=== PATIENT | female | born 1960 | race Caucasian/White ===

== ENCOUNTER 2023-03-13 09:15 | Inpatient (IN) | payer MEDICARE, SELFPAY ==
--- NOTE | 2023-03-13 09:33 | PC.NURSE ---
Plavix and Nitro drip given to labor economics professor, medications not given in ER.
--- NOTE | 2023-03-13 09:34 | XACV_ITS ---
Exam Room: [facility] Ht: 163 cm Wt: 77 kg BSA: 1.89 m2 Gender: Female : 1960 Any Known Allergies: Other Exam Priority: Routine Procedure(s): Procedure Description: Diagnostic procedure Procedure Description: PCI procedure Procedure Description: Drug Eluting Coronary Stent Procedure Description: PTCA Kandis MENA; Diagnostic Cath Status: Emergency Diagnostic Findings * Patient was brought in as a STEMI alert. We did not stop her in the emergency room and brought her directly to the Computer Programmer Analyst. She was hemodynamically stable upon arrival.. * Her arteries are heavily calcified throughout. Angiography reveals right coronary artery dominance. The left main is heavily calcified and contains a 70 to 80% ostial lesion. The LAD is calcified and tortuous. There is a 99% stenosis in the midportion followed by 100% occlusion. The vessel is heavily calcified throughout. The circumflex contains a 70% ostial stenosis. The remainder of the vessel contains diffuse luminal irregularities. It along with the septal branches of the LAD provide collateral flow to the right coronary artery. The right coronary artery is occluded at its at the ostium most likely. Because of the patient's deteriorating clinical status I did not place a catheter in the ostium of the right coronary artery.. * Because of her severe underlying three-vessel and left main coronary disease I placed an intra-aortic balloon pump. I then made arrangements to have her transferred to [facility] in [place]. The only family member she has here is a granddaughter. I spoke to her at length.. PCI Status: Emergency PCI Indication: Immediate PCI for STEMI Interventional Findings * I was able to place a wire down the LAD. I was able to open the vessel with a balloon however it would continually close off. I opened it 2 or 3 times and it would immediately close. I made an attempt to place a stent that because of the anatomy proximal to the area of closure I was not able to get a stent around the corner of a very tortuous vessel. It was at that point that I placed a balloon pump and arranged for transfer. Conclusions 1. Acute anterior wall myocardial infarction with closure of the LAD. Successful opening of the LAD with continued closure. Unable to place a stent. Severe three-vessel coronary artery disease and left main coronary artery disease. Placement of an intra-aortic balloon pump in transfer for coronary bypass surgery. Recommendations * CABG. Interventional RX Recommendation: CABG Diagnostic RX Recommendation: CABG Anticoagulation: Heparin Pressures Phase:Rest AO : 106 / 78 ( 91 ) @ 10:58:00 AM 134 / 93 ( 112 ) @ 11:10:00 AM Clinical Evaluation EBL: 5mL-10mL Procedural Details Procedure Consent Obtained. Pre-Procedure Time Out. Identified patient by full name and date of as verbalized by the patient/guarantor. Does the consent match the physician's order: N/A Emergent; Informed Consent not obtained due to time critical life threat. Accurate & Complete Informed Consent: N/A Emergent; Informed Consent not obtained due to time critical life threat. Inpatient/Outpatient History & Physical on Chart: N/A Emergent; Informed Consent not obtained due to time critical life threat. If H&P is completed, is and addenduem needed: N/A Emergent; Informed Consent not obtained due to time critical life threat; If yes, is the addendum complete: N/A Emergent; Informed Consent not obtained due to time critical life threat. Visualize and Verify Site with Patient/Guarantor: N/A. Relevant Radiology Images available: N/A Emergent; Informed Consent not obtained due to time critical life threat. The risks, benefits, and alternatives of sedation and/or procedure were discussed by physician. The patient agrees to continue. Procedure started. [facility] Clinical Fraility Score: 3: Managing Well. Computer Programmer Analyst Indications: ACS <= 24 hours. Chest Pain Symptom Assessment: Typical Angina Symptoms. Cardiovascular Instability: Yes, if yes, Persistant Ischemic Symptoms. Correct patient, site and procedure confirmed by cath team. Current diagnosis: STEMI. PERRLA. Strong, equal hand chip separator bilaterally. Lungs clear x 5 lobes. IV Site on Arrival: 18 gauge in the right wrist. IV Site on Arrival: 22 gauge in the left hand. IV Fluids: 0.9% NaCl at KVO. 0 mL infused prior to sawyer cork slabs. Oxygen started at 3liters/min via nasal canula. right groin was prepped with chloroprep then draped in the usual sterile fashion. right radial was prepped with chloroprep then draped in the usual sterile fashion. Physician notified. Baseline sample Acquired. HR: 92 BPM. Patient's family unavailable. Equipment: 6F - Radial. Cardiac Cath Pack. ACIST Manifold Kit Model BT 2000. Heparinized Saline (2 units/mL), 1000 mL bag. Physician arrived. Physician scrubbed in. Immediate Pre-Procedure Time Out. Correct Patient: Yes; Correct Procedure: Yes; Correct Site: Yes; Correct Patient Position: Yes; Correct Supplies: Yes; Dried Flammable Prep: Yes; Blood Products Available: N/A;. Lidocaine 1% infiltrated to the right radial. AP pads were placed on the patient. Arterial access obtained. 6 austrian XB 3 guide catheter was inserted over the standard J wire. Baseline sample Acquired. HR: 94 BPM. Cineography of the LCA performed. Current Diagnosis : STEMI. Childs guidewire was advanced through the guide catheter to lesion in the mid LAD. Inflation number : 1 A AB TREK 3.00X12 RX BALLOON was prepped and advanced across the Mid LAD , then inflated to 8 KEVIN for 0:23 seconds. Inflation number: 2 The AB TREK 3.00X12 RX BALLOON was reinflated across the Mid LAD, to 8 KEVIN for 0:25 seconds. Balloon out. Results checked. PCI Indication : Immediate PCI for STEMI. 2.75x12 [place] inserted OTW but unable to cross. Intact stent out OTW. Lidocaine 1% infiltrated to the right groin. Arterial access obtained. ABG drawn and sent with respiratory therapy. A 16Fr brady catheter was inserted without resistance maintaining sterile technique. Bag to gravity with clear urine returning. Labs drawn and sent to lab. IABP wire inserted. 34cc IAB inserted in the Right Femoral Artery. Oxymask placed on patient at 8L. Anesthesia called to intubate the patient. Anesthesia arrived. IABP turned on. Lab arrived to bean picker blood. Augmentation: 1:1. Augmenter BP: 171/95. ACT drawn. Results 181 seconds. Therapeutic limits - pre-heparin administration 90-150 seconds and monitoring heparin during a vascular procedure >250 seconds. ABG Results back and read to Dr. Marquis. Dr. Marquis scrubbed out. Sheath(s) sutured into position with 2-0 silk and sterile 4x4's and Op-site applied over the site. No oozing or signs and symptoms of hematoma noted. Arterial sheath flushed and connected to tranducer and pressure bag with heparinized saline. The IV in the right hand was removed. A 18 gauge IV was started in the right forearm using aseptic technique. Medication's Wasted: Other = Fentanyl 25 mcg Versed 1 mg. Estimated blood loss: 5mL-10mL. Nausea/Vomiting: No. Procedure completed. Patient transferred by bed to ICU. Vital chart was stopped. Access Site Site: Right Radial artery Sheath Size: 6 Fr Hemostasis Success: Unsuccessful Site: Right Femoral artery Sheath Size: 7 Fr Hemostasis Success: Unsuccessful Procedure Medications Start: 9:49 AM Stop: 9:49 AM Medication: Plavix Amount: 600 mg Route: P.O. Start: 9:49 AM Stop: 9:49 AM Medication: Versed Amount: 1 mg Route: I.V. Start: 9:49 AM Stop: 9:49 AM Medication: Fentanyl Amount: 50 mcg Route: I.V. Start: 9:57 AM Stop: 9:57 AM Medication: Versed Amount: 1 mg Route: I.V. Start: 10:09 AM Stop: 10:09 AM Medication: Lasix (furosemide) Amount: 40 mg Route: I.V. Start: 10:09 AM Stop: 10:09 AM Medication: Versed Amount: 1 mg Route: I.V. Start: 10:38 AM Stop: 10:38 AM Medication: Versed Amount: 2 mg Route: I.V. Start: 10:38 AM Stop: 10:38 AM Medication: Fentanyl Amount: 50 mcg Route: I.V. Start: 10:43 AM Stop: :43 AM Medication: Versed 1 mg and Fentanyl 25 mcg Amount: 1 Route: I.V. I, the attending physician, have reviewed and verified all procedure medications. Yes, all medications given per verbal order History/Risk Factors Hypertension: No Dyslipidemia: No Peripheral Arterial Disease (PAD): No Myocardial Infarction (ND): No Obesity: Yes Renal Disease: No Tobacco Use: Current/Recent(w/in 1 year) Prior Interventions PCI: No CABG: No Valve Surgery: No Report Signatures Finalized by Dr. Cezar Marquis MD on 03/13/2023 12:04 PM
--- NOTE | 2023-03-13 09:45 | W.ED.CHESTPA ---
HPI - Chest Pain General: Stated Complaint: STEMI Time Seen by Provider: 03/13/23 09:16 History of Present Illness: 62-year-old female was brought in via EMS on a STEMI alert. EMS had sent us a EKG electronically prior to arrival and then an updated 130 minutes before arrival. The first EKG sent was over an hour out at the 30-minute gigi she did appear to have ST elevation they are reporting continuous chest pain despite nitro we gave orders for heparin today had already been given Plavix. That applied topical nitro. A STEMI alert was called. The EKGs that have been forwarded were given to Dr. Marquis. He recommended diverting past the ER directly to the Internal Audit Consultant based on the report and appearance of the EKG. The patient was registered in the ER and initial labs and appropriate medications, Plavix and nitro were ordered. I did not see or personally evaluate the patient as she was directed straight to the Internal Audit Consultant on arrival per Dr. Marquis's request. MDM - Chest Pain Medical Decision Making STEMI alert directed to Internal Audit Consultant on arrival per Dr. Marquis Discharge Plan Discharge Clinical Impression: ST elevation myocardial infarction (STEMI) Condition: Stable Coding Level of Care Code ED Multi Spindle Operator for Phillip Phipps
[2023-03-13 10:28] LABS: ABG PCO2 42.3 mmHg (35-45); ABG PH Result 7.45 (7.35-7.45); Alveolar-Arterial Oxygen Gradi 3.9 mmHg (5-10); Arterial Blood Gas Hematocrit 44.9 % (37-47); Blood Gas Operator Identificat AMH; Blood Gas Sample Site Not specified; Blood Gas Sample Type Arterial; Carboxyhemoglobin 4.3 %THgb (0.4-20.1); HCO3 ABG 29.6 mmol/L (22-26); HGB O2 Sat 89.1 % (95-100); Ionized Calcium Level - ABG 1.1 mmol/L (1.1-1.4); Methemoglobin 0.7 % (0.4-1.5); Oxygen Device OXY MASK; Oxygen Saturation ABG 93.9; PO2 ABG 66.2 mmHg (80.0-100.0); Total Hemoglobin 14.6 g/dL (12-16)
[2023-03-13 10:39] LABS: Basophils % 0.4 %; Eosinophils # 0.1 10^3/uL (0.0-0.8); Eosinophils % 0.9 %; Hemoglobin 14.1 g/dL (11.5-15.3); Lymphocytes % 10.9 %; Mean Corpuscular HGB Conc 33.6 g/dL (30.0-36.0); Mean Corpuscular Hemoglobin 30.7 pg (28.0-34.0); Mean Corpuscular Volume 91.3 fl (81-99); Mean Platelet Volume 9.1 fL (7.4-10.4); Monocytes # 0.7 10^3/uL (0.2-0.9); Monocytes % 7.3 %; Neutrophils # 7.11 10^3/uL (1.8-7.7); Neutrophils % 79.9 %; Nucleated Red Blood Cells % 0 %; Platelet Count 289 10^3/cmm (130-400); Red Cell Distribution Width 12.5 % (12.1-15.1); White Blood Count 8.9 10^3/uL (4.0-10.0)
--- NOTE | 2023-03-13 10:51 | PM.HP ---
Providers/Chief Complaint Admitting Physician: Cezar Marquis MD Chief Complaint: STEMI History of Present Illness Brooke Flores is a 62 year old female who has not been to this facility before. We do not know anything about her past medical history other than that she is a heavy smoker. She was brought in by ambulance under a STEMI alert. Her EKG revealed ST segment elevation in the anterior precordial leads. We bypassed the emergency room and brought her directly to the cardiac catheterization laboratory. At the time of her arrival she was awake and alert with good oxygen saturation and hemodynamically stable. She was diaphoretic and complaining of severe substernal chest pain. I got very little chance to speak with her. She started having discomfort last evening. It came and went last night and then this morning came on and she could not get it to go away so she called 911. In the ambulance she was given 325 mg of aspirin, 600 mg of Plavix and 4000 units of heparin. Review of Systems Narrative: Review of systems is unavailable due to the acute nature of the illness PFSH Acute PFSH: Medical History (Updated 03/13/23 @ 10:54 by Cezar Marquis MD) Tobacco abuse Physical Exam Narrative: GENERAL: In general she is uncomfortable and is diaphoretic and complaining of severe chest pain. HEENT: Exam within normal limits. NECK: Supple without jugular vein distention. The carotid upstroke is normal without bruits. BACK: Exam normal. LUNGS: Clear. HEART: Regular rate and rhythm. ABDOMEN: Benign without organomegaly or tenderness. EXTREMITIES: No edema. NEUROLOGIC: Exam normal. SKIN: Unremarkable. Data 03/13/23 10:30 03/13/23 10:30 A&P Assessment and plan (1) ST elevation myocardial infarction (STEMI): (2) Tobacco abuse: Plan She will go directly to the cardiac catheterization laboratory. I expect an LAD lesion. Attestations Medical Necessity Statement*: Catheterization for acute myocardial infarction and ICU care and potential transfer. and High Time for a total of 75 minutes, includes reviewing past or interval history, examining/interviewing patient, placing orders, counseling patient/family/other support, updating patient/family/other support, discussing plan of care with staff, communicating with other healthcare providers, documenting encounter and coordinating care Diagnoses ST elevation myocardial infarction (STEMI) I21.3 Tobacco abuse Z72.0
[2023-03-13 10:55] LABS: Alanine Aminotransferase 16 U/L (0-33); Albumin Level 3.7 g/dL (3.5-5.2); Alkaline Phosphatase 91 U/L (35-105); Anion Gap 16.1 (5-19); Aspartate Amino Transferase 16 U/L (0-32); Blood Urea Nitrogen 9 mg/dL (8-23); Calcium 8.4 mg/dL (8.5-10.5); Carbon Dioxide 26 mmol/L (22-29); Chloride 91 mmol/L (98-107); Globulin 2.8 g/dL (1.3-4.6); Glomerular Filtration Rate 84.8 mL/min (90-130); Glucose 130 mg/dL (65-115); Osmolality Calculated 270 mOsm/kg (285-295); Potassium 3.1 mmol/L (3.5-5.1); Sodium 130 mmol/L (136-145); Total Bilirubin 0.3 mg/dL (0.15-1.2); Total Protein 6.5 g/dL (6.6-8.7)
[2023-03-13 11:00] VITALS: BP 113/110; PULSE 85; RESP 20
[2023-03-13 11:02] LABS: Troponin(5th) Baseline 138 ng/L (0-10)
[2023-03-13 11:08] VITALS: PULSE 92; RESP 18
[2023-03-13 11:12] LABS: INR 0.91 (0.8-1.2); Partial Thromboplastin Time 82.2 SECONDS (23.9-36.7)
[2023-03-13 11:15] VITALS: BP 134/110; PULSE 90; RESP 18; O2SAT 100; O2SAT 98; BMI 32.9
--- NOTE | 2023-03-13 11:26 | P.TS_ITS ---
Transfer Summary Providers Date of Admission: 03/13/23 10:47 Date of Discharge/Transfer: 03/13/23 Attending Provider at Admission: Cezar Marquis MD Attending Provider at Transfer: Cezar Marquis MD Transfer Plans: Anticipated date of transfer: 03/13/23 . Receiving Facility: [facility] . Receiving Provider: Dr. Wolfe . Diagnoses at Discharge Discharge Diagnosis (1) ST elevation myocardial infarction (STEMI): Status: Acute (2) Tobacco abuse: Status: Acute (3) COPD (chronic obstructive pulmonary disease): Status: Acute (4) CAD (coronary artery disease): Status: Acute (5) Hypokalemia: Status: Acute (6) Glucose intolerance: Status: Acute Reason for Visit Reason for Visit STEMI Brief History: Patient was brought in by ambulance under a STEMI alert. The prehospital EKG suggested an anterior wall AL. She was not stopped in the emergency room and was taken directly to the cardiac catheterization laboratory. Hospital Course Hospital Course The coronary angiogram was done from the right radial artery. The left main coronary artery reveals a 70% ostial stenosis. The LAD is occluded in the midportion. This is just beyond a area of significant tortuosity. There is a 60 to 70% ostial circumflex lesion. The right coronary artery is occluded at the ostium with some collateral flow from the LAD. I was able to open the LAD twice utilizing a balloon. It simply closed quickly thereafter. I tried to place a stent but due to the tortuosity of the vessel proximal to the closure point, I was not able to pass the stent. Therefore, I placed an intra-aortic balloon pump via the right groin. We placed her on high flow O2 and were able to avoid intubation during the angiogram. I made arrangements with [facility] in [place] to accept her in transfer. Her first troponin was 138. Her glucose is mildly elevated that is likely related to stress. She is mildly hypokalemic. I placed her on a heparin drip for transfer. The ACT in the Crop Research Scientist was 181. This was prior to placing her on a heparin drip. She had received 4000 units of heparin by the first responders along with aspirin 325 mg and Plavix 600 mg. The arterial blood gas on 3 L PO2 66, PCO2 42, pH 7.45. Physical Exam Narrative: GENERAL: In general she is in distress with chest discomfort and diaphoresis. HEENT: Exam within normal limits. NECK: Supple without jugular vein distention. The carotid upstroke is normal without bruits. BACK: Exam normal. LUNGS: Clear. HEART: Regular rate and rhythm. ABDOMEN: Benign without organomegaly or tenderness. EXTREMITIES: No edema. NEUROLOGIC: Exam normal. SKIN: Unremarkable. TS Data Studies Completed and Pending Pending at discharge Category Date Time Status MISSILE PAD MECHANIC request for service Stat Exams 03/13/23 09:34 Ordered Complete Blood Count w/Auto Stat Lab 03/13/23 09:16 Ordered Comprehensive Metabolic Panel Stat Lab 03/13/23 09:16 Ordered Platelet Count Q2D Lab 03/15/23 04:00 Ordered Platelet Count Q2D Lab 03/17/23 04:00 Ordered Platelet Count Routine Lab 03/13/23 11:17 Ordered Troponin(5th) 2 Hour. Timed Lab 03/13/23 12:30 Ordered Troponin(5th) 6 hour. Timed Lab 03/13/23 16:30 Ordered Labs from last 24 hours 03/13/23 03/13/23 03/13/23 10:30 10:30 10:30 WBC 8.9 RBC 4.60 Hgb 14.1 Hct 42.0 MCV 91.3 MCH 30.7 MCHC 33.6 RDW 12.5 Plt Count 289 MPV 9.1 Neut % (Auto) 79.9 Lymph % (Auto) 10.9 [place] % (Auto) 7.3 Eos % (Auto) 0.9 Baso % (Auto) 0.4 Neut # (Auto) 7.11 Lymph # (Auto) 1.0 [place] # (Auto) 0.7 Eos # (Auto) 0.1 Baso # (Auto) 0.0 Nucleated RBC % (auto) 0 Nucleated RBCs # 0.0 PT 12.60 INR 0.91 APTT 82.2 H Specimen Type Sample Site ABG pH ABG pCO2 ABG pO2 ABG HCO3 ABG O2 Saturation ABG Base Excess Sunny Test A-a O2 Gradient Hematocrit Hgb O2 Saturation Carboxyhemoglobin Methemoglobin Total Hemoglobin Sodium 130 L Potassium 3.1 L Glucose 130 H Ionized Calcium O2 Delivery Device O2 Liters/Min Process Automation Engineer ID Chloride 91 L Carbon Dioxide 26 Anion Gap 16.1 BUN 9 Creatinine 0.7 GFR Calculation 84.8 L Calculated Osmolality 270 L Calcium 8.4 L Total Bilirubin 0.3 AST 16 ALT 16 Alkaline Phosphatase 91 Troponin T Baseline Troponin T 120 Minute Delta Troponin T Total Protein 6.5 L Albumin 3.7 Globulin 2.8 03/13/23 03/13/23 03/13/23 10:30 10:30 10:16 WBC RBC Hgb Hct MCV MCH MCHC RDW Plt Count MPV Neut % (Auto) Lymph % (Auto) [place] % (Auto) Eos % (Auto) Baso % (Auto) Neut # (Auto) Lymph # (Auto) [place] # (Auto) Eos # (Auto) Baso # (Auto) Nucleated RBC % (auto) Nucleated RBCs # PT INR APTT Specimen Type Arterial Sample Site Not specified ABG pH 7.45 ABG pCO2 42.3 ABG pO2 66.2 L ABG HCO3 29.6 H ABG O2 Saturation 93.9 ABG Base Excess 5.0 H Sunny Test N/a A-a O2 Gradient 3.9 L Hematocrit 44.9 Hgb O2 Saturation 89.1 L Carboxyhemoglobin 4.3 Methemoglobin 0.7 Total Hemoglobin 14.6 Sodium 132.0 Potassium 3.0 L Glucose 134.0 H Ionized Calcium 1.1 O2 Delivery Device Oxy mask O2 Liters/Min 8.0 Process Automation Engineer ID Amh Chloride Carbon Dioxide Anion Gap BUN Creatinine GFR Calculation Calculated Osmolality Calcium Total Bilirubin AST ALT Alkaline Phosphatase Troponin T Baseline 138 H* Troponin T 120 Minute Pending Delta Troponin T Pending Total Protein Albumin Globulin Laboratory Last Values WBC 8.9 10^3/uL (4.0-10.0) 03/13/23 10:30 RBC 4.60 10^6/uL (4.1-5.3) 03/13/23 10:30 Hgb 14.1 g/dL (11.5-15.3) 03/13/23 10:30 Hct 42.0 % (37.0-47.0) 03/13/23 10:30 MCV 91.3 fl (81-99) 03/13/23 10:30 MCH 30.7 pg (28.0-34.0) 03/13/23 10:30 MCHC 33.6 g/dL (30.0-36.0) 03/13/23 10:30 RDW 12.5 % (12.1-15.1) 03/13/23 10:30 Plt Count 289 10^3/cmm (130-400) 03/13/23 10:30 MPV 9.1 fL (7.4-10.4) 03/13/23 10:30 Neut % (Auto) 79.9 % 03/13/23 10:30 Lymph % (Auto) 10.9 % 03/13/23 10:30 [place] % (Auto) 7.3 % 03/13/23 10:30 Eos % (Auto) 0.9 % 03/13/23 10:30 Baso % (Auto) 0.4 % 03/13/23 10:30 Neut # (Auto) 7.11 10^3/uL (1.8-7.7) 03/13/23 10:30 Lymph # (Auto) 1.0 10^3/uL (0.8-4.8) 03/13/23 10:30 [place] # (Auto) 0.7 10^3/uL (0.2-0.9) 03/13/23 10:30 Eos # (Auto) 0.1 10^3/uL (0.0-0.8) 03/13/23 10:30 Baso # (Auto) 0.0 10^3/uL (0.0-0.1) 03/13/23 10:30 Nucleated RBC % (auto) 0 % 03/13/23 10:30 Nucleated RBCs # 0.0 /100WBC 03/13/23 10:30 PT 12.60 SECONDS (12.1-14.9) 03/13/23 10:30 INR 0.91 (0.8-1.2) 03/13/23 10:30 APTT 82.2 SECONDS (23.9-36.7) H 03/13/23 10:30 Specimen Type Arterial 03/13/23 10:16 Sample Site Not specified 03/13/23 10:16 ABG pH 7.45 (7.35-7.45) 03/13/23 10:16 ABG pCO2 42.3 mmHg (35-45) 03/13/23 10:16 ABG pO2 66.2 mmHg (80.0-100.0) L 03/13/23 10:16 ABG HCO3 29.6 mmol/L (22-26) H 03/13/23 10:16 ABG O2 Saturation 93.9 03/13/23 10:16 ABG Base Excess 5.0 mmol/L (-2.0-2.0) H 03/13/23 10:16 Sunny Test N/a 03/13/23 10:16 A-a O2 Gradient 3.9 mmHg (5-10) L 03/13/23 10:16 Hematocrit 44.9 % (37-47) 03/13/23 10:16 Hgb O2 Saturation 89.1 % (95-100) L 03/13/23 10:16 Carboxyhemoglobin 4.3 %THgb (0.4-20.1) 03/13/23 10:16 Methemoglobin 0.7 % (0.4-1.5) 03/13/23 10:16 Total Hemoglobin 14.6 g/dL (12-16) 03/13/23 10:16 Sodium 132.0 mmol/L (131-143) 03/13/23 10:16 Potassium 3.0 mmol/L (3.5-5.0) L 03/13/23 10:16 Glucose 134.0 mg/dL (70-115) H 03/13/23 10:16 Ionized Calcium 1.1 mmol/L (1.1-1.4) 03/13/23 10:16 O2 Delivery Device Oxy mask 03/13/23 10:16 O2 Liters/Min 8.0 % 03/13/23 10:16 Process Automation Engineer ID Amh 03/13/23 10:16 Sodium 130 mmol/L (136-145) L 03/13/23 10:30 Potassium 3.1 mmol/L (3.5-5.1) L 03/13/23 10:30 Chloride 91 mmol/L (98-107) L 03/13/23 10:30 Carbon Dioxide 26 mmol/L (22-29) 03/13/23 10:30 Anion Gap 16.1 (5-19) 03/13/23 10:30 BUN 9 mg/dL (8-23) 03/13/23 10:30 Creatinine 0.7 mg/dL (0.5-0.9) 03/13/23 10:30 GFR Calculation 84.8 mL/min (90-130) L 03/13/23 10:30 Glucose 130 mg/dL (65-115) H 03/13/23 10:30 Calculated Osmolality 270 mOsm/kg (285-295) L 03/13/23 10:30 Calcium 8.4 mg/dL (8.5-10.5) L 03/13/23 10:30 Total Bilirubin 0.3 mg/dL (0.15-1.2) 03/13/23 10:30 AST 16 U/L (0-32) 03/13/23 10:30 ALT 16 U/L (0-33) 03/13/23 10:30 Alkaline Phosphatase 91 U/L (35-105) 03/13/23 10:30 Troponin T Baseline 138 ng/L (0-10) H* 03/13/23 10:30 Total Protein 6.5 g/dL (6.6-8.7) L 03/13/23 10:30 Albumin 3.7 g/dL (3.5-5.2) 03/13/23 10:30 Globulin 2.8 g/dL (1.3-4.6) 03/13/23 10:30 Recent Clincial Data Intake & Output/Weight 03/11/23 03/12/23 03/13/23 03/14/23 06:59 06:59 06:59 06:59 Weight 191 lb 12.835 oz Procedures Performed Coronary angiography, angioplasty of the LAD, insertion of intra-aortic balloon pump counterpulsation device. TS Medications Medications Heparin Sodium (Porcine) (Heparin 5,000 Unit/Ml Inj 1 Ml) 0 unit IV PRN PRN; Protocol PRN Reason: Heparin weight-base protocol Nitroglycerin/Dextrose (Nitroglycerin Drip) 50 mg in 250 mls @ 0 mls/hr IV .Q0M JACOBO; Protocol Heparin Sodium/Sodium Chloride (Heparin Drip) 25,000 unit in 500 mls @ 0 mls/hr IV .Q0M JACOBO; Protocol Discontinued Medications Clopidogrel Bisulfate (Clopidogrel 300 Mg Tablet) 600 mg PO ONCE ONE Stop: 03/13/23 09:17 Fentanyl (Fentanyl 50 Mcg/Ml Inj 2ml) Confirm Administered Dose 100 mcg .ROUTE .STK-MED ONE Stop: 03/13/23 09:42 Fentanyl (Fentanyl 50 Mcg/Ml Inj 2ml) Confirm Administered Dose 100 mcg .ROUTE .STK-MED ONE Stop: 03/13/23 10:40 Furosemide (Furosemide 10 Mg/Ml Sdv 10ml) Confirm Administered Dose 100 mg .ROUTE .STK-MED ONE Stop: 03/13/23 10:08 Heparin Sodium (Porcine) (Heparin 5,000 Unit/Ml Inj 1 Ml) Confirm Administered Dose 10,000 unit .ROUTE .STK-MED ONE Stop: 03/13/23 09:42 Lidocaine HCl (Xylocaine) Confirm Administered Dose 4 mls @ as directed .ROUTE .STK-MED ONE Stop: 03/13/23 09:42 Midazolam HCl (Midazolam 1 Mg/Ml Inj 2 Ml) Confirm Administered Dose 2 mg .ROUTE .STK-MED ONE Stop: 03/13/23 09:42 Midazolam HCl (Midazolam 1 Mg/Ml Inj 2 Ml) Confirm Administered Dose 2 mg .ROUTE .STK-MED ONE Stop: 03/13/23 10:04 Midazolam HCl (Midazolam 1 Mg/Ml Inj 2 Ml) Confirm Administered Dose 2 mg .ROUTE .STK-MED ONE Stop: 03/13/23 10:34 Midazolam HCl (Midazolam 1 Mg/Ml Inj 2 Ml) Confirm Administered Dose 2 mg .ROUTE .STK-MED ONE Stop: 03/13/23 10:40 Nitroglycerin (Nitroglycerin 5 Mg/Ml Sdv 10 Ml) Confirm Administered Dose 50 mg .ROUTE .STK-MED ONE Stop: 03/13/23 09:42 Discharge Plan Discharge Patient Disposition: Other Inst w Plan Readm Condition: Stable Discharge Orders: Discharge Order (Routine); Ordered 03/13/23 Ordered By: Cezar Marquis Patient Instructions: Opioid Safety Transfer Attestations Time Spent in Transfer Care: greater than 30 min Quality Metrics Clinical Quality Measures [ Acute Myocardial Infaction { Clinical Trial Participant: No; Contraindication to aspirin: None; Aspirin prescribed; Contraindication to statin: Adverse reaction to drug;}] Coding Level of Care Code 89249 Total time (in minutes) for Discharge: [address] elevation myocardial infarction (STEMI) I21.3 Tobacco abuse Z72.0 COPD (chronic obstructive pulmonary disease) J44.9 CAD (coronary artery disease) I25.10 Hypokalemia E87.6 Glucose intolerance E74.39
[2023-03-13] MEDS: heparin drip 25,000 UNIT/500 ML PREMIX 41.76 UNIT IV (11:28)
[2023-03-13 11:30] VITALS: BP 135/106; PULSE 87; RESP 18; O2SAT 98
--- NOTE | 2023-03-13 11:31 | ECG_ITS ---
[facility] Test Date: 2023-03-13 Pat Name: Brooke Flores Department: Room: ICU12 Gender: Female Bmet: RICHMOND: 1960 Requested By: Cezra Marquis Order Number: [id number] Wilbur MD: Miky Cui M.D. Measurements Intervals [place] Rate: 88 P: 76 VT: 140 QRS: 63 QRSD: 83 T: 88 QT: 392 QTc: 475 Interpretive Statements SINUS RHYTHM LOW QRS VOLTAGE IN PRECORDIAL LEADS [QRS DEFLECTION < 1.0 mV IN CHEST LEADS] ANTEROSEPTAL MYOCARDIAL INFARCTION , PROBABLY RECENT [40+ ms Q WAVE IN V1-V4] ACUTE MS No previous ECG available for comparison Electronically Signed On 03-14-2023 16:31:28 CDT by Miky Cui M.D. [email or web address]
[2023-03-13 11:45] VITALS: BP 150/114; PULSE 84; RESP 18
--- NOTE | 2023-03-13 12:45 | PC.NURSE ---
report called tabatha richter here transfer to giovanni
--- NOTE | 2023-03-13 13:46 | PC.NURSE ---
belongins sent with family
[2023-03-13 13:47] VITALS: BP 150/114; PULSE 84; RESP 20; TEMP 36.6; O2SAT 98
== END 2023-03-13 12:30 | disposition short-term general hospital (02) | DRG 272 ==
LOC: ER 09:34 → CCL 09:36 → ICU 10:47
PROVIDERS: Admitting Provider Internal Medicine Cardiovascular Disease; Emergency Provider Family Medicine; Visit Provider Internal Medicine Cardiovascular Disease
PROC: 5A02210 Assistance with Cardiac Output using Balloon Pump, Continuous (ICD-10-PCS; principal; 2023-03-13 09:40)
PROC: 5A02210 Assistance with Cardiac Output using Balloon Pump, Continuous (ICD-10-PCS; 2023-03-13 09:40)
DX: I21.02 ST elevation (STEMI) myocardial infarction involving left anterior descending coronary artery (principal); F17.200 Nicotine dependence, unspecified, uncomplicated; J44.9 Chronic obstructive pulmonary disease, unspecified; I25.10 Atherosclerotic heart disease of native coronary artery without angina pectoris; E87.6 Hypokalemia
CPT/HCPCS: 33967; 36415; 36600; 80051; 80053; 82330; 82805; 84484; 85025; 85347; 85610; 85730; 92920; 93005; 93454; 96361; 96365; 99152; 99153; C1725; C1769; C1874; C1887; C1894; J1644; J1940; J2250; J3010; J3490; Q9967